=== PATIENT | male | born 1960 | race Caucasian/White ===

== ENCOUNTER → 2023-02-01 11:05 | Outpatient (BNVA) | payer OTHER, SELFPAY | PROVIDERS: Visit Provider Physician Assistant Surgical ==

== ENCOUNTER 2023-03-16 10:53 | Outpatient (REF) | payer OTHER, SELFPAY ==
[2023-03-20 12:43] LABS: Vitamin B1 10 nmol/L (8-30)
[2023-03-22 22:13] LABS: Vitamin A 70 mcg/dL (38-98)
== END 2023-03-16 10:54 | disposition home or self-care (01) ==
LOC: HO.LAB 10:53
PROVIDERS: Visit Provider Physician Assistant Surgical
DX: E66.9 Obesity, unspecified (principal); E11.69 Type 2 diabetes mellitus with other specified complication; E78.00 Pure hypercholesterolemia, unspecified; Z71.3 Dietary counseling and surveillance; Z79.899 Other long term (current) drug therapy; Z79.84 Long term (current) use of oral hypoglycemic drugs
CPT/HCPCS: 36415; 80053; 80061; 82306; 82607; 82728; 82746; 83036; 83525; 83540; 83970; 84425; 84443; 84590; 84630; 85025; 86140

== ENCOUNTER 2023-04-18 10:03 | Outpatient (AMB) | payer OTHER, SELFPAY ==
--- NOTE | 2023-04-18 10:13 | MHC.AMNUTRGE ---
Intake VS Expanded 04/18/23 10:20 Height 6 ft Weight 259 lb BMI 35.1 Body Fat 92.0 Body Fat Percentage 35.4 Muscle Mass 159.4 Visceral Mass 21 Water Mass 113.6 BMR 2,291 Intake Visit Reasons: Initial Nutrition [facility] Allergies No Known Allergies Allergy (Verified 03/16/23 11:08) HPI Nutrition Presentation Details Medical weight loss - starting date (03/16/23) Starting weight 280# current weight 259# Reason for consult elevated BMI Diet Assmnt Details Eats the same thing everyday Breakfast Bhavesh deals simple scramble - 190kcal, 18g protein -vitamin fish oil, omega 3, calcium, iron, multi lunch: chicken breast bites 140calories, 24g protein, 3.5g fat snacking on broccoli, 2 carrots? dinner: egg whites, and ketchup snack triple zero yogurt, 2 small Lilia, protein bar exercise 11pm-12pm - cardio machine for 80 minutes goes to bed around 2am Blood sugar: well controlled Dietary counseling reduction Diagnosis Nutrition problem #1 overweight/obesity As related to (etiology) #1 excess energy intake and physical inactivity As evidenced by (sign/symptom) #1 high BMI Monitoring/Goals Nutrition problem monitoring total energy intake, level of knowledge/skill, total PRO intake and total CHO intake Outcome progress progressing Learning/Education Readiness to learn good Stages of change action Most Recent Diabetes Results: Cholesterol 122 mg/dL 03/16/23 HDL Cholesterol 34 mg/dL 03/16/23 Triglycerides 133 mg/dL 03/16/23 Creatinine 0.98 mg/dL (0.5-1.4) 03/16/23 Blood Urea Nitrogen 24 mg/dL (9-16) H 03/16/23 Sodium 139 mmol/L (135-145) 03/16/23 Potassium 4.4 mmol/L (3.3-5.1) 03/16/23 Chloride 103 mmol/L (96-108) 03/16/23 Carbon Dioxide 26 mmol/L (22-29) 03/16/23 Calcium 10.0 mg/dL (8.4-10.2) 03/16/23 AST 21 U/L (5-37) 03/16/23 ALT 25 U/L (0-40) 03/16/23 Total Protein 7.6 g/dL (6.5-8.0) 03/16/23 Albumin 4.4 g/dL (3.5-5.0) 03/16/23 PFSH Surgical History Hx of colonoscopy Hx of oral surgery Family History Mother Emphysema lung Father Asthma Sister No problems noted. Sister No problems noted. Sister No problems noted. Son No problems noted. Daughter No problems noted. Social History Alcohol intake: current Alcohol intake frequency: a few times a month Patient Tobacco Use Status: Never used Tobacco Assessment & Plan Assessment & Plan (1) Diabetes mellitus type 2 in obese: Code(s): E11.69 - Type 2 diabetes mellitus with other specified complication; E66.9 - Obesity, unspecified (2) Obesity (BMI 30-39.9): Code(s): E66.9 - Obesity, unspecified Patient Instructions: overall is doing very well. he will continue nutrition plan as is. encouraged replacing some cardio with weight training. Noted labs - recommended discontinuing iron supplement and talking to his PCP about zinc . he will check his MVI for zinc amount Coding Level of Care Code Nutr Indiv Intake (00687) Diagnoses Diabetes mellitus type 2 in obese E11.69; E66.9 Obesity (BMI 30-39.9) E66.9 Time Spent (min) 45
[2023-04-18 10:20] VITALS: BMI 35.1
== END 2023-04-18 10:56 | disposition home or self-care (01) ==
PROVIDERS: Visit Provider Dietitian, Registered
DX: E11.69 Type 2 diabetes mellitus with other specified complication (principal); E66.9 Obesity, unspecified

== ENCOUNTER → 2023-04-18 10:03 | Outpatient (BNVA) | payer OTHER, SELFPAY | PROVIDERS: Visit Provider Dietitian, Registered | DX: E66.9 Obesity, unspecified (principal); E11.69 Type 2 diabetes mellitus with other specified complication; Z68.35 Body mass index [BMI] 35.0-35.9, adult; Z71.3 Dietary counseling and surveillance | CPT/HCPCS: 97802 ==

== ENCOUNTER 2023-05-24 13:02 | Outpatient (AMB) | payer OTHER, SELFPAY ==
--- NOTE | 2023-05-24 13:04 | MHC.OFFVISWM ---
Intake VS Expanded 05/24/23 13:25 Height 6 ft Weight 250 lb 6.4 oz BMI 34.0 BP 118/62 Blood Pressure Location Rt brachial Blood Pressure Position Sitting Pulse 62 Pulse Source Pulse Oximeter Temp 97.5 F Temperature Source Tympanic Pulse Oximetry 97 Oxygen Delivery Method Room Air Body Fat 82.2 Body Fat Percentage 32.9 Free Fat Mass 168.0 Muscle Mass 159.8 Visceral Mass 19.0 Water Mass 65.2 BMR 2,280 Intake Visit Reasons: MWL follow up Allergies No Known Allergies Allergy (Verified 05/24/23 13:10) Medication List - Last Reconciled 05/24/23 by GODWIN Hester atorvastatin 20 mg PO DAILY cetirizine (Aller-Kennedy) 10 mg PO DAILY PRN fluticasone propionate 50 mcg/actuation (Flonase Allergy Relief) 1 spray intranasal DAILY hydroxyzine HCl 10 mg PO BEDTIME PRN metformin 1,000 mg PO BID HPI HPI Comments History of Present Illness Details Pt presents in followup for MWL. Visit #3. Starting weight: 280.2 Weight at last visit: 259 Total weight change: -29.8 Feels that his weight loss has slowed down. Blood sugars remain relatively well controlled. Current meal plan: Breakfast Bhavesh deals simple scramble - 190kcal, 18g protein -vitamin fish oil, omega 3, calcium, iron, multi lunch: chicken breast bites 140calories, 24g protein, 3.5g fat; broccoli, 2 carrots? dinner: egg whites or egg bites with some cheese and low fat sausage and ketchup; was having a BLT occasionally until 2 weeks ago snack triple zero yogurt, 2 small Clementines or apple slices, [employer] protein bar or a few slices of deli turkey very rarely will have potato chips exercise 11pm-12pm - cardio machine for 80 minutes started going to a head athletic trainer, feels good with physical activity PFSH Surgical History Hx of oral surgery Hx of colonoscopy Family History Mother Emphysema lung Father Asthma Sister No problems noted. Sister No problems noted. Sister No problems noted. Son No problems noted. Daughter No problems noted. Social History (Reviewed 03/16/23 @ 11:09 by Linda Christensen Celine Alcohol intake: current Alcohol intake frequency: a few times a month Patient Tobacco Use Status: Never used Tobacco Assessment & Plan Assessment & Plan (1) Obesity: Code(s): E66.9 - Obesity, unspecified (2) Diabetes mellitus type 2 in obese: Code(s): E11.69 - Type 2 diabetes mellitus with other specified complication; E66.9 - Obesity, unspecified (3) High cholesterol: Code(s): E78.00 - Pure hypercholesterolemia, unspecified Plan We discussed positive body composition changes and that pt may be increasing muscle mass now that he has started weight training, which may help account for the slower rate of total weight loss progress this month compared to his first month. He notes that his weight will often fluctuate several pounds day to day which I think is related to fluid status. Overall he is doing very well in program. Labs reviewed. RTC 1 month. Patient is obese and is not considered stable at this time. I spent a total of 30 minutes reviewing/updating records, examining the patient and counseling the patient on weight management as detailed above. Coding Level of Care Code Est Pt Level 4 (19596) Diagnoses Obesity E66.9 Diabetes mellitus type 2 in obese E11.69; E66.9 High cholesterol E78.00
[2023-05-24 13:25] VITALS: BP 118/62; PULSE 62; TEMP 36.4; O2SAT 97; BMI 34.0
== END 2023-05-24 13:39 | disposition home or self-care (01) ==
PROVIDERS: Visit Provider Physician Assistant Surgical
DX: E66.9 Obesity, unspecified (principal); Z68.34 Body mass index [BMI] 34.0-34.9, adult; E11.69 Type 2 diabetes mellitus with other specified complication; E78.00 Pure hypercholesterolemia, unspecified
CPT/HCPCS: 99214

== ENCOUNTER → 2023-05-24 13:02 | Outpatient (BNVA) | payer OTHER, SELFPAY | PROVIDERS: Visit Provider Physician Assistant Surgical ==

== ENCOUNTER 2023-07-05 13:00 | Outpatient (AMB) | payer OTHER, SELFPAY ==
--- NOTE | 2023-07-05 13:18 | MHC.OFFVISWM ---
Intake VS Expanded 07/05/23 13:31 BP 117/71 Blood Pressure Location Rt brachial Blood Pressure Position Sitting Pulse 56 Pulse Source Pulse Oximeter Temp 96.8 F Temperature Source Tympanic Pulse Oximetry 99 Oxygen Delivery Method Room Air Height 6 ft Weight 245 lb 6.4 oz BMI 33.3 Body Fat % 32.9 Body Fat Mass 80.6 Fat Free Mass 164.6 Visceral Fat Rating 19.0 Body Water % 45.9 Body Water Mass 112.6 Muscle Mass/Score 156.6 Basal Metabolic Rate/Score 2,231 Intake Visit Reasons: (OV) F/U [facility] Allergies No Known Allergies Allergy (Verified 05/24/23 13:10) Medication List - Last Reconciled 07/05/23 by GODWIN Hester atorvastatin 20 mg PO DAILY cetirizine (Aller-Kennedy) 10 mg PO DAILY PRN fluticasone propionate 50 mcg/actuation (Flonase Allergy Relief) 1 spray intranasal DAILY hydroxyzine HCl 10 mg PO BEDTIME PRN metformin 1,000 mg PO BID HPI HPI Comments History of Present Illness Details Pt presents in followup for [facility]. Visit #4. Starting weight: 280.2 Weight at last visit: 250 Total weight change: -34.6 Blood sugars remain relatively well controlled. Were in the mid 90s earlier, lately in around 100s. Having flu like symptoms, hasn't exercised as much this week. Wasn't eating to plan while he felt unwell. Was down to 243 at home before getting sick. Ultimate goal weight is less than 210lbs. Current meal plan: Breakfast Bhavesh deals simple scramble - 190kcal, 18g protein -vitamin fish oil, omega 3, calcium, iron, multi lunch: chicken breast bites 140calories, 24g protein, 3.5g fat; broccoli, 2 carrots? dinner: egg whites or egg bites with some cheese and low fat sausage and ketchup; was having a BLT occasionally until 2 weeks ago snack triple zero yogurt, 2 small Clementines or apple slices, [employer] protein bar or a few slices of deli turkey exercise 11pm-12pm - cardio machine for 80 minutes, usually 4x/week started going to a human resources trainer once a week, feels good with physical activity PFSH Surgical History Hx of oral surgery Hx of colonoscopy Family History Mother Emphysema lung Father Asthma Sister No problems noted. Sister No problems noted. Sister No problems noted. Son No problems noted. Daughter No problems noted. Social History Alcohol intake: current Alcohol intake frequency: a few times a month Patient Tobacco Use Status: Never used Tobacco Assessment & Plan Assessment & Plan (1) Obesity: Code(s): E66.9 - Obesity, unspecified (2) Diabetes mellitus type 2 in obese: Code(s): E11.69 - Type 2 diabetes mellitus with other specified complication; E66.9 - Obesity, unspecified (3) High cholesterol: Code(s): E78.00 - Pure hypercholesterolemia, unspecified Plan No meal plan changes made today. Pt feels he should be more disciplined again now that he has recovered from illness, and plans to be diligent in meal plan and exercise again. RTC 1 month. He will email me with any questions between appts. Patient is obese and is not considered stable at this time. I spent a total of 30 minutes reviewing/updating records, examining the patient and counseling the patient on weight management as detailed above. Coding Level of Care Code Est Pt Level 4 (12520) Diagnoses Obesity E66.9 Diabetes mellitus type 2 in obese E11.69; E66.9 High cholesterol E78.00
[2023-07-05 13:31] VITALS: BP 117/71; PULSE 56; TEMP 36; O2SAT 99; BMI 33.3
== END 2023-07-05 13:51 | disposition home or self-care (01) ==
PROVIDERS: Visit Provider Physician Assistant Surgical
DX: E66.9 Obesity, unspecified (principal); Z68.33 Body mass index [BMI] 33.0-33.9, adult; E78.00 Pure hypercholesterolemia, unspecified
CPT/HCPCS: 99214

== ENCOUNTER → 2023-07-05 13:00 | Outpatient (BNVA) | payer OTHER, SELFPAY | PROVIDERS: Visit Provider Physician Assistant Surgical ==

== ENCOUNTER 2023-08-23 10:52 | Outpatient (AMB) | payer OTHER, SELFPAY ==
--- NOTE | 2023-08-23 10:55 | A.OFFVIS_ITS ---
Intake VS Expanded 08/23/23 11:33 BP 121/71 Blood Pressure Location Rt brachial Blood Pressure Position Sitting Pulse 65 Pulse Source Pulse Oximeter Temp 97.2 F Temperature Source Tympanic Pulse Oximetry 65 L Oxygen Delivery Method Room Air Height 6 ft Weight 248 lb 3.2 oz BMI 33.7 Body Fat % 33.4 Fat Free Mass 165.2 Visceral Fat Rating 19.0 Body Water % 45.4 Body Water Mass 112.6 Muscle Mass/Score 157.0 Basal Metabolic Rate/Score 2,241 Intake Visit Reasons: (OV) F/U [facility] Allergies No Known Allergies Allergy (Verified 05/24/23 13:10) Medication List - Last Reconciled 08/23/23 by GODWIN Hester atorvastatin 20 mg PO DAILY cetirizine (Aller-Kennedy) 10 mg PO DAILY PRN fluticasone propionate 50 mcg/actuation (Flonase Allergy Relief) 1 spray intranasal DAILY hydroxyzine HCl 10 mg PO BEDTIME PRN metformin 1,000 mg PO BID HPI HPI Comments History of Present Illness Details Pt presents in followup for [facility]. Starting weight: 280.2 Weight at last visit: 245.6 (+2.6 today) Total weight change: -32 Was able to get weight into high 230's since last visit, but then gained some back. Is finishing semester, in finals week, hoping to have more time between semesters. Reports he has been mostly consistent with meal plan, but not perfect. Eating less vegetables. Blood sugars have been high recently. Ultimate goal weight is less than 210lbs. Current meal plan: Breakfast Bhavesh deals simple scramble - 190kcal, 18g protein -vitamin fish oil, omega 3, calcium, iron, multi lunch: chicken breast bites 140calories, 24g protein, 3.5g fat; broccoli, 2 carrots? dinner: egg whites or egg bites with some cheese and low fat sausage and ketchup; was having a BLT occasionally until 2 weeks ago snack triple zero yogurt, 2 small Clementines or apple slices, [employer] protein bar or a few slices of deli turkey somewhat particular about what he likes to eat exercise 11pm-12pm - cardio machine for 80 minutes, usually 4x/week started going to a new product trainer once a week, feels good with physical activity has been less consistent with exercise in the past month COUNTS INCLUDE 234 BEDS AT [facility] Surgical History Hx of oral surgery Hx of colonoscopy Family History Mother Emphysema lung Father Asthma Sister No problems noted. Sister No problems noted. Sister No problems noted. Son No problems noted. Daughter No problems noted. Social History Alcohol intake: current Alcohol intake frequency: a few times a month Patient Tobacco Use Status: Never used Tobacco Assessment & Plan Assessment & Plan (1) Obesity: Code(s): E66.9 - Obesity, unspecified (2) Diabetes mellitus type 2 in obese: Code(s): E11.69 - Type 2 diabetes mellitus with other specified complication; E66.9 - Obesity, unspecified (3) High cholesterol: Code(s): E78.00 - Pure hypercholesterolemia, unspecified Plan Offered recipe book to give pt additional options but he declined. He is more interested in quick simple options so I suggested premarinated or preseasoned meat like chicken pieces that he can find in the grocery store, and cook to his preference. Also precooked items like sliced chicken breast that he can add to salads. He recognizes that he has not been totally consistent especially with exercise so he is looking forward to having more time now that his semester is ending. Discussed possible reasons for blood sugar fluctuations such as decreased exercise and inconsistent eating. Will see PCP within the next few weeks for annual, will likely have HgbA1C checked at that time. RTC 1 month. Patient is obese and is not considered stable at this time. I spent a total of 30 minutes reviewing/updating records, examining the patient and counseling the patient on weight management as detailed above. Coding Level of Care Code Est Pt Level 4 (41688) Diagnoses Obesity E66.9 Diabetes mellitus type 2 in obese E11.69; E66.9 High cholesterol E78.00
[2023-08-23 11:33] VITALS: BP 121/71; PULSE 65; TEMP 36.2; O2SAT 65; BMI 33.7
== END 2023-08-23 11:49 | disposition home or self-care (01) ==
PROVIDERS: Visit Provider Physician Assistant Surgical
DX: E66.9 Obesity, unspecified (principal); Z68.33 Body mass index [BMI] 33.0-33.9, adult; E11.69 Type 2 diabetes mellitus with other specified complication; E78.00 Pure hypercholesterolemia, unspecified
CPT/HCPCS: 99214

== ENCOUNTER → 2023-08-23 10:52 | Outpatient (BNVA) | payer OTHER, SELFPAY | PROVIDERS: Visit Provider Physician Assistant Surgical ==